=== PATIENT | male | born 1995 | race Caucasian/White ===

== ENCOUNTER 2024-08-27 09:37 | Emergency (ER) | payer MEDICAID ==
[~2024-08-27] VITALS: Ht 177.8 cm; Wt 80.7 kg
[2024-08-27] MEDS: FENTANYL CITRATE/PF 50MCG/ML 2ML VIAL IV ONE (10:21)
[2024-08-27] MEDS: LACTATED RINGERS 1,000 ML IV SCH (10:22)
[2024-08-27 10:51] LABS: CHLORIDE 106 mEq/L (98-107); POTASSIUM 3.6 mEq/L (3.5-5.1); SODIUM 140 mEq/L (136-145)
[2024-08-27 10:52] LABS: BASOPHILS % 0.3 % (0.0-2.0); CALCIUM 9.4 mg/dL (8.7-10.4); CARBON DIOXIDE 29 mEq/L (21-32); EOSINOPHILS % 0.7 % (0.0-5.0); HEMATOCRIT. 43.8 % (42.0-52.0); HEMOGLOBIN. 14.5 g/dL (14.0-18.0); LYMPHOCYTES % 15.1 % (20.0-50.0); MEAN CORPUSCULAR HEMOGLOBIN 28.3 pg (28.0-32.0); MEAN CORPUSCULAR HGB CONC 33.1 g/dL (31.0-37.0); MEAN CORPUSCULAR VOLUME 85.5 fL (80.0-94.0); MEAN PLATELET VOLUME 8.1 fl (7.4-10.4); MONOCYTES % 8.1 % (2.0-8.0); NEUTROPHILS % 75.8 % (40.0-76.0); PLATELET 252 x1000/uL (130-400); RED BLOOD CELL COUNT 5.12 mill/uL (4.7-6.1); RED CELL DISTRIBUTION WIDTH 13.2 % (11.6-14.6); WHITE BLOOD COUNT 8.1 x1000/uL (4.5-11.0)
[2024-08-27 10:57] LABS: CREATININE 1.2 mg/dL (0.6-1.3); GLUCOSE 101 mg/dL (70-105); UREA NITROGEN BLOOD 11 mg/dL (9-23)
[2024-08-27] MEDS: KETAMINE HCL 50 MG/ML 10ML IV ONE (12:22)
[2024-08-27] MEDS: PROPOFOL 200MG/20ML VIAL IV ONE (12:23)
[2024-08-27 12:26] VITALS: O2SAT 98
[2024-08-27] MEDS ORDERED: KETO10TA2 MT (13:29)
[2024-08-27 13:32] VITALS: BP 135/61; PULSE 72; RESP 16; TEMP 36.72516; O2SAT 99
== END 2024-08-27 13:40 | disposition home or self-care (01) ==
LOC: ER 09:57
DX: S52.592A Other fractures of lower end of left radius, initial encounter for closed fracture (principal); S52.612A Displaced fracture of left ulna styloid process, initial encounter for closed fracture; Z90.49 Acquired absence of other specified parts of digestive tract; V00.131A Fall from skateboard, initial encounter; Y93.89 Activity, other specified; Y92.89 Other specified places as the place of occurrence of the external cause; Y99.8 Other external cause status
CPT/HCPCS: 80048; 85025; 86850; 86900; 86901; 36415; 73110; 73130; 25605; 96361; 96374; 99152; 99285; J3010; J3490; J2704; Z7610 ×3; A4565